=== PATIENT | female | born 2000 | race Caucasian/White ===

== ENCOUNTER 2023-09-02 16:59 | Emergency (ER) | payer OTHER, SELFPAY ==
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
[2023-09-02 17:01] VITALS: BP 133/81; PULSE 107; RESP 16; TEMP 36.7; O2SAT 100
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
[2023-09-02] MEDS: ACETAMINOPHEN 500 MG TABLET 1000 MG PO (19:20)
[2023-09-02 20:06] LABS: Basophils Absolute Auto 0.1 K/mm3 (0.0-0.1); Basophils Percent Auto 0.8 % (0.2-1.2); Eosinophils Percent Auto 0.3 % (0-4.4); Hematocrit 41.3 % (37.0-47.0); Hemoglobin 14.1 g/dL (12.0-15.0); Immature Granulocyte Absolute 0.03 K/mm3 (0.00-0.031); Immature Granulocyte Percent A 0.3 % (0-0.5); Lymphocytes Absolute Auto 1.65 K/mm3 (0.9-3.2); Lymphocytes Percent Auto 17.2 % (18.3-44.2); Mean Corpuscular HGB Conc 34.1 g/dl (32-36); Mean Corpuscular Hemoglobin 30.3 pg (26-34); Mean Corpuscular Volume 88.8 fl (80-100); Mean Platelet Volume 9.8 fl (7.4-10.4); Monocytes Absolute Auto 0.5 K/mm3 (0.1-0.6); Monocytes Percent Auto 4.7 % (2.6-8.5); Neutrophils Absolute Auto 7.3 K/mm3 (1.3-6.7); Neutrophils Percent Auto 76.7 % (45.5-73.1); Platelet Count Result 265 k/mm3 (150-375); Red Blood Count 4.65 M/mm3 (4.2-5.4); Red Cell Distribution Width 12.5 % (11.5-14.5); White Blood Count 9.6 K/mm3 (4.5-10.0)
[2023-09-02] MEDS: LORATADINE 10 MG TABLET PO (20:07)
[2023-09-02 20:17] LABS: Alanine Aminotransferase 17 U/L (6-35); Albumin Level 5.2 g/dL (3.5-5.1); Alkaline Phosphatase 116 U/L (38-126); Anion Gap 14 mmol/L (4-12); Aspartate Amino Transferase 23 U/L (14-36); Bilirubin,Total 0.5 mg/dL (0.2-1.3); Blood Urea Nitrogen 17 mg/dL (7-17); Calcium 9.9 mg/dL (8.4-10.2); Carbon Dioxide 23 mmol/L (22-30); Chloride 103 mmol/L (98-107); Estimated CRCL calculation 122 ml/min; Estimated Glomerular Filt Rate > 60; Glucose 99 mg/dL (65-110); Potassium 3.8 mmol/L (3.4-5.0); Sodium 140 mmol/L (137-145)
[2023-09-02 21:11] VITALS: BP 128/79; PULSE 90; RESP 17; O2SAT 100
== END 2023-09-02 21:13 | disposition home or self-care (01) ==
PROVIDERS: Emergency Provider Emergency Medicine
DX: S20.319A Abrasion of unspecified front wall of thorax, initial encounter (principal); S80.812A Abrasion, left lower leg, initial encounter; S40.212A Abrasion of left shoulder, initial encounter; R10.30 Lower abdominal pain, unspecified; V43.52XA Car driver injured in collision with other type car in traffic accident, initial encounter
CPT/HCPCS: 36415; 71046; 71260; 73030; 74177; 80053; 81025; 85025; 99284; A9270; Q9967